=== PATIENT | female | born 1995 | race Caucasian/White ===

== ENCOUNTER → 2020-12-10 | Outpatient (CLI) | payer OTHER ==
--- NOTE | 2020-12-10 16:58 | REP ---
INDICATION: LUMP W/ SWELLING RLQ ABD AREA ? CYST VS MASS. COMPARISON: None TECHNIQUE: Scanning over the region of interest FINDINGS: Ultrasonographic evaluation of the right lower quadrant region over a palpable area shows no cystic or solid masses. IMPRESSION: Unremarkable right lower quadrant ultrasound. Negative ultrasound does not obviate further anatomical imaging with contrast-enhanced CT or MRI. Accredited by the [employer] in General Ultrasound. <Electronically signed by Gino Nava > 12/10/20 [id number]
== END ==
LOC: M RAD 15:45
PROVIDERS: ATTEND Physician Assistant
DX: R19.03 Right lower quadrant abdominal swelling, mass and lump (principal)

== ENCOUNTER 2021-07-01 13:20 | Day surgery (SDC) | payer OTHER ==
[~2021-07-01] VITALS: Ht 170.2 cm; Wt 81.6 kg
[2021-07-01] MEDS ORDERED: ceFAZolin SOD 2 GM in IV 1 EA IV ONE (14:15)
[2021-07-01] MEDS ORDERED: MIDAZOLAM INJ 2MG/2ML VIAL (J2250 PER 1MG) As Ordered ONE (14:20)
[2021-07-01] MEDS ORDERED: ONDANSETRON 4MG/2ML VIAL As Ordered ONE (14:20)
[2021-07-01] MEDS ORDERED: ACETAMINOPHEN 1000MG 100ML IV BTL (OFIRMEV) (J0131 PER 10MG) As Ordered ONE (14:20)
[2021-07-01] MEDS ORDERED: LIDOCAINE 2% 100MG/5ML SDV (FOR ANES.) As Ordered ONE (14:20)
[2021-07-01] MEDS ORDERED: KETOROLAC 60MG 2ML VIAL As Ordered ONE (14:20)
[2021-07-01] MEDS ORDERED: propofoL 200 MG/20 ML VIAL As Ordered ONE ×2 (14:20→17:23)
[2021-07-01] MEDS ORDERED: dexameTHASONE 4 MG/ML 1ML VIAL (J1100 PER 1MG) As Ordered ONE (14:20)
[2021-07-01] MEDS ORDERED: fentaNYL 100 MCG/2 ML INJECTION As Ordered ONE (14:21)
[2021-07-01] MEDS ORDERED: DEXTROAMP-AMPHETAMIN PO (14:23)
[2021-07-01] MEDS ORDERED: LEXA1TAB2 PO (14:23)
[2021-07-01] MEDS ORDERED: TRAZ-252 PO (14:23)
[2021-07-01] MEDS ORDERED: NAPR-885 PO (14:23)
[2021-07-01] MEDS ORDERED: DICY10CA13 PO (14:23)
[2021-07-01] MEDS ORDERED: LORA-753 PO (14:23)
[2021-07-01] MEDS ORDERED: LIDOCAINE 5% OINT 30GM TUBE As Ordered ONE (14:30)
[2021-07-01] MEDS ORDERED: LR 1,000 ML IV ONE (14:35)
[2021-07-01] MEDS ORDERED: BUPIVACAINE HCL 0.25% 30ML VIAL As Ordered ONE (15:35)
[2021-07-01] MEDS ORDERED: ePHEDrine SULFATE 25 MG/5 ML(5MG/ML) SYRINGE As Ordered ONE (17:08)
[2021-07-01] MEDS ORDERED: LR 1,000 ML IV SCH (17:55)
[2021-07-01] MEDS ORDERED: ONDANSETRON 4MG/2ML VIAL IV PRN (17:55)
[2021-07-01] MEDS ORDERED: HYDROMORPHONE HCL 0.5 MG/ 0.5 ML SYRINGE (J1170 PER 1) IV PRN (17:55)
[2021-07-01] MEDS ORDERED: fentaNYL 100 MCG/2 ML INJECTION IV PRN (17:55)
[2021-07-01] MEDS: oxyCODONE 5MG TAB PO PRN ×2 (18:00→18:33)
[2021-07-01] MEDS: MEPERIDINE INJ 25 MG/ML VIAL (J2175) IV PRN ×2 (18:01→18:06)
[2021-07-01 18:59] VITALS: BP 121/70
== END 2021-07-01 19:10 | disposition home or self-care (01) ==
LOC: M SDC 13:20
PROVIDERS: ATTEND Orthopaedic Surgery Hand Surgery
DX: S62.627A Displaced fracture of middle phalanx of left little finger, initial encounter for closed fracture (principal); Y92.9 Unspecified place or not applicable; Y93.75 Activity, martial arts; Y99.9 Unspecified external cause status
CPT/HCPCS: 26727; 76000; 81025; J0131; J0690; J1100; J1885; J2175; J2250; J2405; J3010

== ENCOUNTER → 2021-07-11 | Outpatient (CLI) | payer OTHER ==
[~2021-07-11] MED LIST: DEXTROAMP-AMPHETAMIN PO; DICY10CA13 PO; LEXA1TAB2 PO; LORA-753 PO; NAPR-885 PO; TRAZ-252 PO
== END ==
LOC: M SOG 10:24
PROVIDERS: ATTEND Orthopaedic Surgery Hand Surgery
DX: S62.627A Displaced fracture of middle phalanx of left little finger, initial encounter for closed fracture (principal); X58.XXXA Exposure to other specified factors, initial encounter; Y92.9 Unspecified place or not applicable; Y93.9 Activity, unspecified; Y99.9 Unspecified external cause status

== ENCOUNTER → 2021-07-25 | Outpatient (CLI) | payer OTHER | LOC: M SOG 09:15 | PROVIDERS: ATTEND Orthopaedic Surgery Hand Surgery | DX: S62.627D Displaced fracture of middle phalanx of left little finger, subsequent encounter for fracture with routine healing (principal); W18.30XD Fall on same level, unspecified, subsequent encounter ==

== ENCOUNTER → 2021-08-15 | Outpatient (CLI) | payer OTHER | LOC: M SOG 10:06 | PROVIDERS: ATTEND Physician Assistant | DX: S62.627D Displaced fracture of middle phalanx of left little finger, subsequent encounter for fracture with routine healing (principal); W18.30XD Fall on same level, unspecified, subsequent encounter ==

== ENCOUNTER → 2021-12-13 | Outpatient (CLI) | payer OTHER | LOC: M WUC 11:54 | PROVIDERS: ATTEND Physician Assistant | DX: S90.122A Contusion of left lesser toe(s) without damage to nail, initial encounter (principal) ==

== ENCOUNTER 2022-02-25 15:48 | Emergency (ER) | payer OTHER ==
[2022-02-25] MEDS ORDERED: HYDR-3363 (15:54)
[2022-02-25] MEDS ORDERED: BRIN10TA4 (15:54)
[2022-02-25 17:37] VITALS: BP 123/65
== END 2022-02-25 17:51 | disposition home or self-care (01) ==
LOC: M ED 15:48
DX: B34.8 Other viral infections of unspecified site (principal); K58.9 Irritable bowel syndrome, unspecified; F43.10 Post-traumatic stress disorder, unspecified; F32.A Depression, unspecified; F41.9 Anxiety disorder, unspecified

== ENCOUNTER → 2022-07-06 | Outpatient (CLI) | payer OTHER ==
[~2022-07-06] MED LIST changes: +BRIN10TA4; +HYDR-3363
== END ==
LOC: M PLARAD 08:30
PROVIDERS: ATTEND Student in an Organized Health Care Education/Training Program
DX: M54.2 Cervicalgia (principal)

== ENCOUNTER 2022-08-16 20:07 | Observation (INO) | payer OTHER ==
[~2022-08-16] VITALS: Ht 170.2 cm; Wt 86.5 kg
[2022-08-16 21:12] LABS: BASO # 0.1 10^3/uL (0.0-0.2); BASO % 0.4 % (0.0-1.0); EOS # 0.4 10^3/uL (0.0-0.5); EOS % 3.1 % (0.0-3.0); HEMATOCRIT 43.8 % (36.0-47.0); HEMOGLOBIN 14.7 g/dl (12.0-15.5); LYMPH # 0.9 10^3/uL (1.5-5.0); LYMPH % 6.6 % (24.0-44.0); MEAN CORPUSCULAR HEMOGLOBIN 29.5 pg (27.0-33.0); MEAN CORPUSCULAR HGB CONC 33.6 g/dl (32.0-36.5); MEAN CORPUSCULAR VOLUME 87.8 fl (80.0-96.0); MONO # 0.7 10^3/uL (0.0-0.8); MONO % 5.1 % (2.0-8.0); NEUTROPHILS % 84.4 % (36.0-66.0); PLATELET COUNT, AUTOMATED 260 10^3/uL (150-450); RED BLOOD COUNT 4.99 10^6/uL (4.00-5.40)
[2022-08-16] MEDS ORDERED: ISOVUE-370 76% 100ML VIAL As Ordered ONE (21:21)
[2022-08-16 21:23] LABS: ABG BASE EXCESS -1.2 (-2.0-2.0); ABG HCO3 21.9 MEQ/L (22.0-26.0); ABG O2 SATURATION 92.9 % (95.0-99.0); ABG PARTIAL PRESSURE CO2 32.5 mmHg (35.0-45.0); ABG PARTIAL PRESSURE O2 62.9 mmHg (75.0-100.0); ABG STANDARD HCO3 23.4 MEQ/L (22.0-26.0); ABG TOTAL CO2 22.9 MEQ/L (22.0-29.0); ABG pH (ARTERIAL) 7.447 UNITS (7.350-7.450); INR 1.06
[2022-08-16 21:25] LABS: D-DIMER QUANT 1131.1 ng/ml (<500)
[2022-08-16] MEDS ORDERED: NS 2,600 ML in IV 1 EA IV ONE (21:25)
[2022-08-16 21:37] LABS: ALBUMIN 3.9 G/DL (3.2-5.2); ALKALINE PHOSPHATASE 74 U/L (46-116); ALT/SGPT 17 U/L (7.0-40); AST/SGOT 20 U/L (<34); BILIRUBIN,DIRECT 0.2 MG/DL (<0.4); BILIRUBIN,TOTAL 0.5 MG/DL (0.3-1.2); BLOOD UREA NITROGEN 8 MG/DL (9-23); CALCIUM LEVEL 8.8 MG/DL (8.5-10.1); CARBON DIOXIDE LEVEL 23 MMOL/L (20-31); CHLORIDE LEVEL 105 MMOL/L (98-107); CREATININE FOR GFR 0.71 MG/DL (0.55-1.30); GLOMERULAR FILTRATION RATE > 60.0 (>60); GLUCOSE, FASTING 116 MG/DL (60-100); POTASSIUM SERUM 3.7 MMOL/L (3.5-5.1); SODIUM LEVEL 138 MMOL/L (136-145); TOTAL PROTEIN 7.2 G/DL (5.7-8.2)
[2022-08-16] MEDS ORDERED: IPRATROPIUM 0.5MG/ALBUTEROL 2.5MG INH SOL UD 3ML (DUONEB) NEB ONE ×2 (21:45)
[2022-08-16 21:51] LABS: HCG, SERUM QUALITATIVE NEGATIVE (NEGATIVE)
[2022-08-16 22:10] LABS: THYROID STIMULATING HORMONE 0.558 uIU/ML (0.55-4.78)
[2022-08-16 22:16] VITALS: O2SAT 98
[2022-08-16] MEDS ORDERED: cefTRIAXone SOD 1 GM in D5W MINI-BAG PLUS 50 ML IV ONE (23:50)
[2022-08-16] MEDS ORDERED: NS 1,000 ML IV ONE (23:50)
[2022-08-16] MEDS ORDERED: AZITHROMYCIN 250MG TABLET PO ONE (23:50)
[2022-08-17] MEDS ORDERED: UNRESOLVED PATIENT OWN MED ORDER XX SCH (00:01)
[2022-08-17] MEDS ORDERED: HOME MED LIST COMPLETE! XX SCH (01:35)
[2022-08-17] MEDS ORDERED: D 50CAP2 PO (01:35)
[2022-08-17] MEDS ORDERED: BRIN10TA4 PO (01:35)
[2022-08-17] MEDS ORDERED: HYDR-3363 PO (01:35)
[2022-08-17] MEDS ORDERED: OMEG10002 PO (01:35)
[2022-08-17] MEDS ORDERED: RA T500C2 PO (01:35)
[2022-08-17] MEDS ORDERED: LORA-674 PO (01:35)
[2022-08-17] MEDS ORDERED: TRAZ-186 PO (01:35)
[2022-08-17] MEDS ORDERED: ADDE20CA3 PO (01:35)
[2022-08-17] MEDS ORDERED: CHEL50TA3 PO (01:35)
[2022-08-17] MEDS ORDERED: MAGN400T35 PO (01:35)
[2022-08-17] MEDS ORDERED: DICY1CAP8 PO (01:35)
[2022-08-17] MEDS ORDERED: OYST500T92 PO (01:35)
[2022-08-17] MEDS ORDERED: DICYCLOMINE 10 MG CAP PO PRN (01:40)
[2022-08-17] MEDS ORDERED: ALBUTEROL SULFATE 2.5MG/0.5ML INH NEB SOLN NEB PRN ×2 (03:00→04:15)
[2022-08-17] MEDS: DOXYCYCLINE HYCLATE 100MG TABLET PO SCH ×2 (03:47→21:38)
[2022-08-17] MEDS ORDERED: IPRATROPIUM 0.5MG/ALBUTEROL 2.5MG INH SOL UD 3ML (DUONEB) NEB SCH ×2 (04:00→08:00)
[2022-08-17] MEDS: HEPARIN SOD (PORCINE) 5000UNITS/ML 1ML VIAL/SYRINGE SC SCH ×3 (05:52→21:39)
[2022-08-17] MEDS: FLUTICASONE HFA 220 MCG 12 GM INHALER (FLOVENT) INH SCH ×2 (08:00→21:05)
[2022-08-17] MEDS: AMPHETAMINE/DEXTROAMPHETAMINE 5 MG *ER* CAPSULE (ADDERALL XR) PO SCH ×2 (08:12→09:00)
[2022-08-17 09:00] VITALS: BP 139/74
[2022-08-17] MEDS ORDERED: ADDERALL 5 MG TAB PO SCH (09:00)
[2022-08-17 09:30] VITALS: BP 138/76
[2022-08-17] MEDS: ACETAMINOPHEN TAB 650MG DOSE (2X325MG) PO PRN ×2 (09:59→21:46)
[2022-08-17] MEDS ORDERED: methylPREDNISolone 40MG 1ML VIAL IV ONE (10:30)
[2022-08-17] MEDS ORDERED: LEVALBUTEROL 1.25MG 0.5ML CONCENTRATE NEB INH PRN ×2 (11:05→11:40)
[2022-08-17] MEDS: IPRATROPIUM 0.02% SOLN 0.5MG 2.5ML NEB INH SCH ×2 (13:34→21:06)
[2022-08-17 16:00] VITALS: BP 116/64
[2022-08-17 20:00] VITALS: BP 116/69
[2022-08-17] MEDS ORDERED: VORTIOXETINE HBR 10 MG PO SCH (21:00)
[2022-08-18] VITALS: BP 117/69
[2022-08-18] MEDS ORDERED: cefTRIAXone SOD 1 GM in D5W MINI-BAG PLUS 50 ML IV SCH ×2
[2022-08-18] MEDS: IPRATROPIUM 0.02% SOLN 0.5MG 2.5ML NEB INH SCH ×3 (02:20→11:42)
[2022-08-18 04:00] VITALS: BP 110/68
[2022-08-18] MEDS: HEPARIN SOD (PORCINE) 5000UNITS/ML 1ML VIAL/SYRINGE SC SCH (06:09)
[2022-08-18] MEDS: ACETAMINOPHEN TAB 650MG DOSE (2X325MG) PO PRN (06:19)
[2022-08-18 07:08] LABS: BASO % 0.3 % (0.0-1.0); EOS % 0.4 % (0.0-3.0); HEMATOCRIT 37.7 % (36.0-47.0); HEMOGLOBIN 12.9 g/dl (12.0-15.5); LYMPH # 1.9 10^3/uL (1.5-5.0); LYMPH % 23.2 % (24.0-44.0); MEAN CORPUSCULAR HEMOGLOBIN 29.8 pg (27.0-33.0); MEAN CORPUSCULAR HGB CONC 34.2 g/dl (32.0-36.5); MEAN CORPUSCULAR VOLUME 87.1 fl (80.0-96.0); MONO # 0.9 10^3/uL (0.0-0.8); MONO % 10.7 % (2.0-8.0); NEUTROPHILS # 5.2 10^3/uL (1.5-8.5); NEUTROPHILS % 64.9 % (36.0-66.0); PLATELET COUNT, AUTOMATED 251 10^3/uL (150-450); RED BLOOD COUNT 4.33 10^6/uL (4.00-5.40)
[2022-08-18] MEDS ORDERED: FUROSEMIDE 20MG/2ML VIAL IV ONE (08:00)
[2022-08-18] MEDS: FLUTICASONE HFA 220 MCG 12 GM INHALER (FLOVENT) INH SCH (08:12)
[2022-08-18] MEDS: LEVALBUTEROL 1.25MG 0.5ML CONCENTRATE NEB INH SCH ×2 (08:12→11:42)
[2022-08-18 08:30] VITALS: BP 118/81
[2022-08-18] MEDS: AMPHETAMINE/DEXTROAMPHETAMINE 5 MG *ER* CAPSULE (ADDERALL XR) PO SCH (09:00)
[2022-08-18] MEDS: DOXYCYCLINE HYCLATE 100MG TABLET PO SCH (09:21)
[2022-08-18] MEDS ORDERED: CEFD300C41 PO (10:23)
[2022-08-18] MEDS ORDERED: FLUT22IN INH (10:23)
[2022-08-18] MEDS ORDERED: DOXY100T PO (10:26)
[2022-08-18] MEDS ORDERED: LEVA12INH INH (10:26)
[2022-08-18] MEDS ORDERED: PRED20TA PO ×2 (10:31→10:52)
[2022-08-18] MEDS ORDERED: LEVAINH INH (10:52)
[2022-08-21 19:08] LABS: BODY FLUID CULTURE Not indicated. (.); LEGIONELLA ANTIGEN URINE Negative (Negative); ORGANISM ID Not indicated. (.); SPECIMEN SOURCE Urine (.); URINE STREP PNEUMONIAE ANTIGEN Negative (Negative)
== END 2022-08-18 15:15 | disposition home or self-care (01) ==
LOC: M ED 20:07 → M ED INP 23:58 → ENRESERV 08-17 08:37 → M PED 08-17 09:15
PROVIDERS: ADMIT Internal Medicine; ATTEND Internal Medicine
DX: J12.9 Viral pneumonia, unspecified (principal); A41.9 Sepsis, unspecified organism; B97.10 Unspecified enterovirus as the cause of diseases classified elsewhere; B97.89 Other viral agents as the cause of diseases classified elsewhere; D72.829 Elevated white blood cell count, unspecified; R00.0 Tachycardia, unspecified; R50.9 Fever, unspecified; R06.82 Tachypnea, not elsewhere classified; G90.A Postural orthostatic tachycardia syndrome [POTS]; K58.9 Irritable bowel syndrome, unspecified; R07.9 Chest pain, unspecified; R00.2 Palpitations; F90.9 Attention-deficit hyperactivity disorder, unspecified type; F32.A Depression, unspecified; J45.909 Unspecified asthma, uncomplicated; Z79.899 Other long term (current) drug therapy; Z79.51 Long term (current) use of inhaled steroids; Z79.52 Long term (current) use of systemic steroids
CPT/HCPCS: 36415; 36600; 71275; 80048; 80076; 82803; 83605; 83880; 84145; 84443; 84703; 85025; 85379; 85610; 87070; 87205; 87449; 87486; 87581; 87633; 87798; 87899; 93005; 93041; 94640; 94760; 96361; 96365; 96372; 96375; 96376; 99285; J0696; J1644; J2920; Q9967

== ENCOUNTER → 2023-03-02 | Outpatient (CLI) | payer OTHER ==
[~2023-03-02] MED LIST changes: +ADDE20CA3 PO; +BRIN10TA4 PO; +CEFD300C41 PO; +CHEL50TA3 PO; +D 50CAP2 PO; +DICY-61 PO; -DICY10CA13 PO; +DICY1CAP8 PO; +DOXY100T PO; +FLUT22IN INH; +HYDR-3363 PO; +LEVA12INH INH; +LEVAINH INH; +LORA-1041 PO; +MAGN400T35 PO; +OMEG10002 PO; +OYST500T92 PO; +PRED20TA PO; +RA T500C2 PO; +TRAZ-186 PO
== END ==
LOC: M RAD 07:21
PROVIDERS: ATTEND Internal Medicine Rheumatology
DX: M47.818 Spondylosis without myelopathy or radiculopathy, sacral and sacrococcygeal region (principal); R93.7 Abnormal findings on diagnostic imaging of other parts of musculoskeletal system

== ENCOUNTER → 2023-06-01 | Outpatient (CLI) | payer OTHER ==
[~2023-06-01] MED LIST changes: +B-12100021 PO; +CEFD1CAP9 PO; -CEFD300C41 PO; +FOLI1TAB11 PO; +IBUP1TAB7 PO; +META0.52 PO
[2023-06-01 13:21] LABS: BASO # 0.1 10^3/uL (0.0-0.2); BASO % 0.9 % (0.0-1.0); EOS # 0.3 10^3/uL (0.0-0.5); EOS % 3.5 % (0.0-3.0); HEMATOCRIT 41.9 % (36.0-47.0); HEMOGLOBIN 13.9 g/dl (12.0-15.5); LYMPH # 3.2 10^3/uL (1.5-5.0); LYMPH % 41.2 % (24.0-44.0); MEAN CORPUSCULAR HEMOGLOBIN 30.1 pg (27.0-33.0); MEAN CORPUSCULAR HGB CONC 33.2 g/dl (32.0-36.5); MEAN CORPUSCULAR VOLUME 90.7 fl (80.0-96.0); MONO # 0.6 10^3/uL (0.0-0.8); MONO % 7.1 % (2.0-8.0); NEUTROPHILS # 3.6 10^3/uL (1.5-8.5); PLATELET COUNT, AUTOMATED 340 10^3/uL (150-450); RED BLOOD COUNT 4.62 10^6/uL (4.00-5.40); WHITE BLOOD COUNT 7.7 10^3/uL (4.0-10.0)
[2023-06-01 13:29] LABS: ERYTHROCYTE SEDIMENTATION RATE 16 mm/hr (0-20)
[2023-06-01 13:48] LABS: C REACTIVE PROTEIN QUANTITATIV < 0.40 MG/DL (<1.0)
[2023-06-01 13:50] LABS: ALBUMIN 3.9 G/DL (3.2-5.2); ALKALINE PHOSPHATASE 61 U/L (46-116); ALT/SGPT 16 U/L (7.0-40); AST/SGOT 15 U/L (<34); BILIRUBIN,TOTAL 0.4 MG/DL (0.3-1.2); BLOOD UREA NITROGEN 11 MG/DL (9-23); CALCIUM LEVEL 8.9 MG/DL (8.5-10.1); CARBON DIOXIDE LEVEL 29 MMOL/L (20-31); CHLORIDE LEVEL 107 MMOL/L (98-107); CREATININE FOR GFR 0.95 MG/DL (0.55-1.30); GLOMERULAR FILTRATION RATE > 60.0 (>60); GLUCOSE, FASTING 75 MG/DL (60-100); POTASSIUM SERUM 4.3 MMOL/L (3.5-5.1); SODIUM LEVEL 142 MMOL/L (136-145); TOTAL PROTEIN 6.7 G/DL (5.7-8.2)
== END ==
LOC: M WUC 09:39
PROVIDERS: ATTEND Internal Medicine Rheumatology
DX: M25.50 Pain in unspecified joint (principal); R76.0 Raised antibody titer; I73.00 Raynaud's syndrome without gangrene

== ENCOUNTER → 2023-07-20 | Outpatient (CLI) | payer OTHER ==
[~2023-07-20] MED LIST changes: +ISOVUE-370 76% 100ML VIAL As Ordered ONE
== END ==
LOC: M RAD 09:53
PROVIDERS: ATTEND Internal Medicine
DX: R91.8 Other nonspecific abnormal finding of lung field (principal); J84.10 Pulmonary fibrosis, unspecified
CPT/HCPCS: 71260; Q9967

== ENCOUNTER → 2023-09-25 | Outpatient (CLI) | payer OTHER ==
[~2023-09-25] MED LIST changes: -ISOVUE-370 76% 100ML VIAL As Ordered ONE
== END ==
LOC: M CARPUL 09:47
PROVIDERS: ATTEND Internal Medicine Pulmonary Disease
DX: R06.02 Shortness of breath (principal)

== ENCOUNTER → 2023-10-02 | Outpatient (CLI) | payer OTHER ==
[~2023-10-02] MED LIST changes: +METHACHOLINE KIT (6 VIAL.NEB PREMIX) INH ONE
== END ==
LOC: M CARPUL 10:09
PROVIDERS: ATTEND Internal Medicine Pulmonary Disease
DX: R06.02 Shortness of breath (principal)

== ENCOUNTER → 2024-02-04 | Outpatient (CLI) | payer OTHER ==
[~2024-02-04] MED LIST changes: +ISOVUE-370 76% 100ML VIAL As Ordered ONE; -METHACHOLINE KIT (6 VIAL.NEB PREMIX) INH ONE
== END ==
LOC: M RAD 13:02
PROVIDERS: ATTEND Internal Medicine
DX: J84.10 Pulmonary fibrosis, unspecified (principal); J98.4 Other disorders of lung
CPT/HCPCS: 71260; Q9967

== ENCOUNTER → 2024-09-30 | Outpatient (CLI) | payer OTHER ==
[~2024-09-30] MED LIST changes: -ISOVUE-370 76% 100ML VIAL As Ordered ONE; +ISOVUE-370 76% 100ML VIAL ONE; +LEVA15HF2 INH; -LEVAINH INH
== END ==
LOC: M PLAIMG 09:05
PROVIDERS: ATTEND Internal Medicine
DX: M53.3 Sacrococcygeal disorders, not elsewhere classified (principal); R93.89 Abnormal findings on diagnostic imaging of other specified body structures

== ENCOUNTER 2025-03-17 14:45 | Emergency (ER) | payer OTHER ==
[~2025-03-17] VITALS: Ht 170.2 cm; Wt 83.5 kg
[~2025-03-17 14:45] MED LIST changes: -ISOVUE-370 76% 100ML VIAL ONE; -RA T500C2 PO; +TURM500C10 PO
[2025-03-17 14:47] VITALS: BP 146/66; TEMP 97.8; O2SAT 100
== END 2025-03-17 16:25 | disposition left against medical advice (07) ==
LOC: M ED 14:45
DX: Z53.21 Procedure and treatment not carried out due to patient leaving prior to being seen by health care provider (principal)